=== PATIENT | male | born 1935 | race Caucasian/White ===

== ENCOUNTER → 2023-05-18 06:32 | Outpatient (REF) | payer MEDICARE, SELFPAY ==
[2023-05-18 07:34] LABS: ALT (SGPT) 18 U/L (0-50); AST (SGOT) 24 U/L (17-59); Albumin 4.1 g/dl (3.5-5.0); Alkaline Phosphatase 60 U/L (38-126); Blood Urea Nitrogen 29 mg/dl (9-20); Carbon Dioxide 26 mmol/L (22-30); Chloride 107 mmol/L (98-107); Glucose 127 mg/dl (70-99); Potassium 4.3 mmol/L (3.5-5.1); Sodium 138 mmol/L (135-145); Total Bilirubin 0.4 mg/dl (0.2-1.3); Total Protein 6.6 g/dl (6.3-8.2); eGFR 53.17
[2023-05-18 08:54] LABS: Glycohemoglobin (HgbA1c) 8.1 % (4.0-5.6)
== END ==
LOC: REG 06:32
PROVIDERS: ATTENDING PHYSICIAN Internal Medicine Geriatric Medicine
DX: E11.42 Type 2 diabetes mellitus with diabetic polyneuropathy (principal); E78.2 Mixed hyperlipidemia
CPT/HCPCS: 36415; 80053; 83036

== ENCOUNTER → 2023-05-29 15:04 | Outpatient (REF) | payer MEDICARE, SELFPAY | LOC: RAD 15:04 | PROVIDERS: ATTENDING PHYSICIAN Nurse Practitioner Family; FAMILY PHYSICIAN Internal Medicine Geriatric Medicine | DX: M25.561 Pain in right knee (principal) | CPT/HCPCS: 73564 ==

== ENCOUNTER → 2023-07-20 07:13 | Outpatient (REF) | payer MEDICARE, SELFPAY ==
[2023-07-20 07:57] LABS: % Basophils 0.7 % (0-2); % Eosinophils 1.6 % (0-6); % Immature Granulocytes 0.7 % (0-0.5); % Lymphocytes 14.7 % (20.5-51.1); % Monocytes 10.6 % (1.7-9.3); % Neutrophils 71.7 % (42.2-75.2); Absolute Eosinophils 0.1 10^3/uL (0-0.7); Absolute Lymphocytes 0.6 10^3/uL (1.2-3.4); Absolute Monocytes 0.5 10^3/uL (0.1-0.6); Absolute Neutrophils 3.1 10^3/uL (1.4-6.5); Hematocrit 31.9 % (39.0-52.0); Hemoglobin 10.6 g/dL (13.0-18.0); Mean Corp Hgb Conc. 33.2 g/dL (33.0-37.0); Mean Corpuscular Hgb 28.8 pg (27.0-31.0); Mean Corpuscular Volume 86.7 fL (80.0-94.0); Mean Platelet Volume 9.9 fL (7.4-10.4); Nucleated Red Blood Cells % 0 % (-); Platelet Count 164 10^3/uL (130-400); Red Blood Cell Count 3.68 10^6/uL (4.70-6.10); Red Cell Dist. Width 13.2 % (11.5-14.5); White Blood Cell Count 4.4 10^3/uL (4.8-10.8)
[2023-07-20 08:25] LABS: ALT (SGPT) 17 U/L (0-50); AST (SGOT) 22 U/L (17-59); Albumin 3.9 g/dl (3.5-5.0); Alkaline Phosphatase 53 U/L (38-126); Blood Urea Nitrogen 34 mg/dl (9-20); Calcium 9.3 mg/dl (8.4-10.2); Carbon Dioxide 28 mmol/L (22-30); Chloride 107 mmol/L (98-107); Glucose 141 mg/dl (70-99); HDL Cholesterol 39 mg/dl; LDL Cholesterol, Calculated 52 mg/dl; Potassium 4.6 mmol/L (3.5-5.1); Sodium 141 mmol/L (135-145); Total Bilirubin 0.2 mg/dl (0.2-1.3); Total Cholesterol 110 mg/dl (50-199); Total Protein 6.4 g/dl (6.3-8.2); Triglyceride 95 mg/dl (10-149); Very Low Density Lipoprotein 19 mg/dl (0-30); eGFR 58.53
[2023-07-20 08:56] LABS: PSA, Total - Screen 1.17 ng/ml (0.0-4.0)
[2023-07-20 12:02] LABS: Glycohemoglobin (HgbA1c) 7.8 % (4.0-5.6)
== END ==
LOC: REG 07:13
PROVIDERS: ATTENDING PHYSICIAN Internal Medicine Geriatric Medicine
DX: E11.42 Type 2 diabetes mellitus with diabetic polyneuropathy (principal); I10 Essential (primary) hypertension; E78.2 Mixed hyperlipidemia; R35.0 Frequency of micturition; D64.9 Anemia, unspecified; E03.8 Other specified hypothyroidism; E55.9 Vitamin D deficiency, unspecified; D50.8 Other iron deficiency anemias; Z13.89 Encounter for screening for other disorder; Z12.5 Encounter for screening for malignant neoplasm of prostate
CPT/HCPCS: 36415; 80053; 80061; 82306; 83036; 85025; G0103

== ENCOUNTER 2023-07-27 17:18 | Emergency (ER) | payer MEDICARE, SELFPAY ==
[2023-07-27 17:50] VITALS: BP 179/70
--- NOTE | 2023-07-27 19:38 | ED.MUSCINJ ---
HPI-Injury
General
Chief Complaint: Fall
Source: patient
Exam Limitations: none
Time Seen by Provider: 07/27/23 19:28
Travel History
Have you had any contact with someone who has COVID-19?: No
Do you have any symptoms of coronavirus? Fever > 100 degrees, chills, cough, shortness of breath, sore throat, loss of taste or smell, muscle aches, or headache?: No
History of Present Illness-Injury
Initial Injury comments:
87-year-old [id number] male presents complaining after fall with right shoulder pain. The pain is made worse when he tries to lift his arm up. He did not hit his head. He is not anticoagulated. No other complaints at this time
Past History
Past History
ED Past Medical History: HTN, NIDDM and Other (Diverticulosis, GI bleed 2008, hypertension)
ED Past Surgical History: Appendectomy, Orthopedic (Ankle surgery repair), Tonsilectomy and Other (Cataract removal, hernia repair 1969)
Social History
Tobacco: Non-smoker
Alcohol: None
Drug: None
Personal:
Living: with family
Employment: Retired
Family History
Family History: Other (Noncontributory)
Phy Exam
Physical Exam
Physical Exam:
General: Well-appearing male no acute respiratory distress
Musculoskeletal exam: Right shoulder without deformity but tender over the lateral aspect of the shoulder. Cervical spine is nontender. He has no pain to the elbow or forearm of the right hand.
Neurologic: Alert and oriented no facial asymmetry. No scalp abrasion or hematoma
Skin: Superficial abrasion noted to the right forearm
Injury Course
Orders/Labs/Results
Orders:
Orders
07/27/23 17:53
Shoulder, Right, Trauma [CR Shoulder, Trauma - Right] Urgent
Comment:
Reason For Exam: fall
MDM/Problems Addressed
Differential Diagnosis Includes:
Mechanical fall with right shoulder pain. Question fracture versus sprain versus dislocation
I personally visualized x-rays of the right shoulder which demonstrate a possible subtle nondisplaced fracture of the greater tuberosity. Patient placed in sling. We will advise follow-up with orthopedics for further evaluation
*Critical Care Note
Total Time (30-74mins, 75-104mins- exclusive of procedures): Not Applicable
ED Attending Note
-
Portions of this chart may have been created with voice recognition software.� Occasional wrong word or��sound alike� substitutions may have occurred due to the inherent limitations of voice recognition software.
Discharge Plan
Departure
Patient Disposition: Home (Routine Discharge)
Date of Disposition: 07/27/23
Time of Disposition: 19:40
Patient with high blood pressure during this ER visit?: No
Discharge Problem:
Proximal humerus fracture
Instructions: Muscle and Bone Pain (DC)
Prescriptions:
No Action
metformin 500 MG tablet extended release 24 hr
500 mg PO BID
losartan 50 MG tablet
50 mg PO DAILY
timolol maleate (PF) [Timoptic Ocudose (PF)] 1 EACH dropperette
1 ea RIGHT EYE DAILY
prednisone 50 MG tablet
50 mg PO DAILY Qty: 4 0RF
famotidine 20 MG tablet
20 mg PO DAILY Qty: 7 0RF
hydroxyzine HCl 25 MG tablet
25 mg PO QIDPRN PRN (Reason: hives/itching rash) Qty: 15 0RF
epinephrine [EpiPen] 0.3 MG/0.3/SYRINGE auto-injector
0.3 mg IM NOW Qty: 1 3RF
C,E,zinc,copper [id number] 1 CAP capsule
1 cap PO DAILY
prednisone 10 MG tablet
10 mg PO DAILY Qty: 18 0RF
Rx Instructions:
3 tabs daily �3 days then 2 tabs daily �3 days then 1 tab daily �3 days
diphenhydramine HCl [Benadryl] 25 mg capsule
25 mg PO TID PRN (Reason: itching) Qty: 20 0RF
prednisone 10 mg tablet
10 mg PO DIRECTED Qty: 40 0RF
Rx Instructions:
4 pills a day for 2 days, 3 pills a day for 3 days, 2 pills a day for 3 days, 1 pill a day for 3 days
Referrals:
Matthew Lucas MD [Family Provider] -
Terrence Bray MD [Active] -
Activity Restrictions/Additional Instructions:
Use sling for comfort. Use Tylenol for pain. Follow up with orthopedics for further evaluation.
Interventions
Interventions:
*Risk Screen - Suicide Last Done: 07/27/23 17:52
*General Assessment Last Done: 07/27/23 17:52
*Neglect/Abuse Screening Last Done: 07/27/23 17:52
*ED COVID-19 Vaccine History Last Done: 07/27/23 18:38
ED-Musculoskeletal Assessment Last Done: 07/27/23 18:38
ED- Neurological Assessment Last Done: 07/27/23 18:38
ED-Skin Assessment Last Done: 07/27/23 18:38
Discharge Date and Time
Print Language: [place]ET[place]
== END 2023-07-27 19:50 | disposition home or self-care (01) ==
LOC: EMR 17:18
PROVIDERS: EMERGENCY PHYSICIAN Student in an Organized Health Care Education/Training Program; FAMILY PHYSICIAN Internal Medicine Geriatric Medicine
DX: S42.254A Nondisplaced fracture of greater tuberosity of right humerus, initial encounter for closed fracture (principal); M25.511 Pain in right shoulder; I10 Essential (primary) hypertension; E11.9 Type 2 diabetes mellitus without complications; W19.XXXA Unspecified fall, initial encounter
CPT/HCPCS: 99283; 73030

== ENCOUNTER → 2023-09-18 16:16 | Outpatient (REF) | payer MEDICARE, SELFPAY ==
[2023-09-18 16:44] LABS: % Eosinophils 3.1 % (0-6); % Immature Granulocytes 0.7 % (0-0.5); % Lymphocytes 14.7 % (20.5-51.1); % Monocytes 11.8 % (1.7-9.3); % Neutrophils 69.7 % (42.2-75.2); Absolute Eosinophils 0.1 10^3/uL (0-0.7); Absolute Lymphocytes 0.7 10^3/uL (1.2-3.4); Absolute Monocytes 0.5 10^3/uL (0.1-0.6); Absolute Neutrophils 3.1 10^3/uL (1.4-6.5); Hematocrit 32.3 % (39.0-52.0); Mean Corp Hgb Conc. 34.1 g/dL (33.0-37.0); Mean Corpuscular Hgb 29.3 pg (27.0-31.0); Mean Corpuscular Volume 86.1 fL (80.0-94.0); Mean Platelet Volume 9.6 fL (7.4-10.4); Nucleated Red Blood Cells % 0 % (-); Platelet Count 177 10^3/uL (130-400); Red Blood Cell Count 3.75 10^6/uL (4.70-6.10); Red Cell Dist. Width 13.6 % (11.5-14.5); White Blood Cell Count 4.5 10^3/uL (4.8-10.8)
[2023-09-18 17:06] LABS: Total Iron Binding Capacity 296 ug/dl (261-462)
[2023-09-18 17:33] LABS: Ferritin 27.4 ng/ml (17.9-464.0)
== END ==
LOC: REG 16:16
PROVIDERS: ATTENDING PHYSICIAN Nurse Practitioner Family; FAMILY PHYSICIAN Internal Medicine Geriatric Medicine
DX: D64.9 Anemia, unspecified (principal); D50.8 Other iron deficiency anemias; G47.62 Sleep related leg cramps; K92.2 Gastrointestinal hemorrhage, unspecified
CPT/HCPCS: 36415; 82728; 83550; 85025

== ENCOUNTER → 2023-11-14 06:31 | Outpatient (REF) | payer MEDICARE, SELFPAY ==
[2023-11-14 07:42] LABS: % Basophils 0.2 % (0-2); % Eosinophils 1.4 % (0-6); % Immature Granulocytes 0.4 % (0-0.5); % Lymphocytes 11.8 % (20.5-51.1); % Monocytes 8.4 % (1.7-9.3); % Neutrophils 77.8 % (42.2-75.2); Absolute Eosinophils 0.1 10^3/uL (0-0.7); Absolute Lymphocytes 0.6 10^3/uL (1.2-3.4); Absolute Monocytes 0.4 10^3/uL (0.1-0.6); Absolute Neutrophils 3.8 10^3/uL (1.4-6.5); Hemoglobin 11.3 g/dL (13.0-18.0); Mean Corp Hgb Conc. 33.2 g/dL (33.0-37.0); Mean Corpuscular Volume 87.2 fL (80.0-94.0); Mean Platelet Volume 9.4 fL (7.4-10.4); Nucleated Red Blood Cells % 0 % (-); Platelet Count 193 10^3/uL (130-400); Red Cell Dist. Width 13.2 % (11.5-14.5); White Blood Cell Count 4.9 10^3/uL (4.8-10.8)
[2023-11-14 08:10] LABS: ALT (SGPT) 27 U/L (0-50); AST (SGOT) 26 U/L (17-59); Albumin 4.4 g/dl (3.5-5.0); Alkaline Phosphatase 62 U/L (38-126); Blood Urea Nitrogen 29 mg/dl (9-20); Calcium 9.8 mg/dl (8.4-10.2); Carbon Dioxide 24 mmol/L (22-30); Chloride 104 mmol/L (98-107); Glucose 139 mg/dl (70-99); HDL Cholesterol 35 mg/dl; Iron 98 ug/dl (49-181); LDL Cholesterol, Calculated 67 mg/dl; Potassium 5.1 mmol/L (3.5-5.1); Sodium 145 mmol/L (135-145); Total Bilirubin 0.4 mg/dl (0.2-1.3); Total Cholesterol 135 mg/dl (50-199); Total Protein 6.9 g/dl (6.3-8.2); Triglyceride 169 mg/dl (10-149); Very Low Density Lipoprotein 33 mg/dl (0-30); eGFR > 60.00
[2023-11-14 08:21] LABS: Percent Saturation 32 % (20-50); Total Iron Binding Capacity 297 ug/dl (261-462)
[2023-11-14 08:28] LABS: Vitamin D, 25-OH*** 57.4 ng/mL (30-80)
[2023-11-14 09:23] LABS: Glycohemoglobin (HgbA1c) 7.6 % (4.0-5.6)
== END ==
LOC: REG 06:31
PROVIDERS: ATTENDING PHYSICIAN Internal Medicine Geriatric Medicine
DX: Z00.00 Encounter for general adult medical examination without abnormal findings (principal); E11.42 Type 2 diabetes mellitus with diabetic polyneuropathy; I10 Essential (primary) hypertension; E78.2 Mixed hyperlipidemia; R35.0 Frequency of micturition; D64.9 Anemia, unspecified; E03.8 Other specified hypothyroidism; E55.9 Vitamin D deficiency, unspecified; D50.8 Other iron deficiency anemias; Z13.89 Encounter for screening for other disorder
CPT/HCPCS: 36415; 80053; 80061; 82306; 83036; 83540; 83550; 85025

== ENCOUNTER → 2024-02-06 16:14 | Outpatient (REF) | payer MEDICARE, SELFPAY ==
[2024-02-06 16:59] LABS: % Basophils 0.2 % (0-2); % Eosinophils 1.4 % (0-6); % Immature Granulocytes 3.9 % (0-0.5); % Lymphocytes 8.2 % (20.5-51.1); % Monocytes 6.8 % (1.7-9.3); % Neutrophils 79.5 % (42.2-75.2); Absolute Eosinophils 0.1 10^3/uL (0-0.7); Absolute Immature Granulocytes 0.4 10^3/uL (0-0.05); Absolute Lymphocytes 0.8 10^3/uL (1.2-3.4); Absolute Monocytes 0.7 10^3/uL (0.1-0.6); Absolute Neutrophils 7.7 10^3/uL (1.4-6.5); Hemoglobin 11.9 g/dL (13.0-18.0); Mean Corpuscular Hgb 29.1 pg (27.0-31.0); Mean Corpuscular Volume 85.6 fL (80.0-94.0); Nucleated Red Blood Cells % 0 % (-); Platelet Count 230 10^3/uL (130-400); Red Blood Cell Count 4.09 10^6/uL (4.70-6.10); Red Cell Dist. Width 13.2 % (11.5-14.5); White Blood Cell Count 9.6 10^3/uL (4.8-10.8)
[2024-02-06 17:17] LABS: ALT (SGPT) 23 U/L (0-50); AST (SGOT) 19 U/L (17-59); Albumin 4.2 g/dl (3.5-5.0); Alkaline Phosphatase 62 U/L (38-126); Blood Urea Nitrogen 47 mg/dl (9-20); Calcium 9.3 mg/dl (8.4-10.2); Carbon Dioxide 26 mmol/L (22-30); Chloride 98 mmol/L (98-107); Glucose 446 mg/dl (70-99); Iron 101 ug/dl (49-181); Potassium 5.7 mmol/L (3.5-5.1); Sodium 134 mmol/L (135-145); Total Bilirubin 0.3 mg/dl (0.2-1.3); Total Protein 6.5 g/dl (6.3-8.2); eGFR 52.84
[2024-02-06 17:27] LABS: Percent Saturation 38 % (20-50); Total Iron Binding Capacity 264 ug/dl (261-462)
[2024-02-06 17:49] LABS: TSH Reflex To Free T4 2.16 uIU/ml (0.47-4.68)
[2024-02-06 18:08] LABS: Vitamin B12 914 pg/ml (239-931)
== END ==
LOC: RAD 16:14
PROVIDERS: ATTENDING PHYSICIAN Nurse Practitioner Primary Care
DX: U07.1 COVID-19 (principal); R53.1 Weakness; R42 Dizziness and giddiness; D64.9 Anemia, unspecified; E11.9 Type 2 diabetes mellitus without complications
CPT/HCPCS: 36415; 71046; 80053; 82607; 82728; 83540; 83550; 84443; 85025

== ENCOUNTER → 2024-02-14 10:11 | Outpatient (REF) | payer MEDICARE, SELFPAY ==
[2024-02-14 13:35] LABS: Glycohemoglobin (HgbA1c) 11.1 % (4.0-5.6)
[2024-02-14 14:13] LABS: Blood Urea Nitrogen 41 mg/dl (9-20); Calcium 8.8 mg/dl (8.4-10.2); Carbon Dioxide 26 mmol/L (22-30); Chloride 102 mmol/L (98-107); Glucose 182 mg/dl (70-99); Potassium 4.5 mmol/L (3.5-5.1); Sodium 139 mmol/L (135-145); eGFR 52.84
== END ==
LOC: REG 10:11
PROVIDERS: ATTENDING PHYSICIAN Nurse Practitioner Primary Care; FAMILY PHYSICIAN Internal Medicine Geriatric Medicine
DX: E11.65 Type 2 diabetes mellitus with hyperglycemia (principal)
CPT/HCPCS: 36415; 80048; 83036

== ENCOUNTER → 2024-03-20 10:15 | Outpatient (REF) | payer MEDICARE, SELFPAY ==
[2024-03-20 11:40] LABS: ALT (SGPT) 29 U/L (0-50); AST (SGOT) 29 U/L (17-59); Albumin 4.2 g/dl (3.5-5.0); Alkaline Phosphatase 55 U/L (38-126); Blood Urea Nitrogen 30 mg/dl (9-20); Calcium 8.7 mg/dl (8.4-10.2); Carbon Dioxide 29 mmol/L (22-30); Chloride 100 mmol/L (98-107); Glucose 157 mg/dl (70-99); Potassium 4.4 mmol/L (3.5-5.1); Sodium 139 mmol/L (135-145); Total Bilirubin 0.3 mg/dl (0.2-1.3); Total Protein 6.3 g/dl (6.3-8.2); eGFR > 60.00
[2024-03-20 13:25] LABS: Microalbumin, Random Urine 9.2 mg/dl (0.6-1.7); Microalbumin/creatinine Ratio 181.1 mg/g
[2024-03-22 13:48] LABS: Fructosamine 272 umol/L (205-285)
== END ==
LOC: REG 10:15
PROVIDERS: ATTENDING PHYSICIAN Nurse Practitioner Primary Care; FAMILY PHYSICIAN Internal Medicine Geriatric Medicine
DX: E11.42 Type 2 diabetes mellitus with diabetic polyneuropathy (principal)
CPT/HCPCS: 36415; 80053; 82043; 82570; 82985

== ENCOUNTER → 2024-04-12 10:07 | Outpatient (REF) | payer MEDICARE, SELFPAY ==
[2024-04-12 11:15] LABS: % Basophils 0.8 % (0-2); % Eosinophils 1.2 % (0-6); % Immature Granulocytes 0.6 % (0-0.5); % Lymphocytes 8.9 % (20.5-51.1); % Monocytes 7.7 % (1.7-9.3); % Neutrophils 80.8 % (42.2-75.2); Absolute Eosinophils 0.1 10^3/uL (0-0.7); Absolute Lymphocytes 0.5 10^3/uL (1.2-3.4); Absolute Monocytes 0.4 10^3/uL (0.1-0.6); Absolute Neutrophils 4.2 10^3/uL (1.4-6.5); Hematocrit 34.7 % (39.0-52.0); Hemoglobin 11.2 g/dL (13.0-18.0); Mean Corp Hgb Conc. 32.3 g/dL (33.0-37.0); Mean Corpuscular Hgb 28.4 pg (27.0-31.0); Mean Corpuscular Volume 87.8 fL (80.0-94.0); Mean Platelet Volume 10.1 fL (7.4-10.4); Nucleated Red Blood Cells % 0 % (-); Platelet Count 206 10^3/uL (130-400); Red Blood Cell Count 3.95 10^6/uL (4.70-6.10); White Blood Cell Count 5.2 10^3/uL (4.8-10.8)
[2024-04-12 12:11] LABS: ALT (SGPT) 23 U/L (0-50); AST (SGOT) 23 U/L (17-59); Albumin 4.2 g/dl (3.5-5.0); Alkaline Phosphatase 58 U/L (38-126); Blood Urea Nitrogen 31 mg/dl (9-20); Calcium 9.3 mg/dl (8.4-10.2); Carbon Dioxide 28 mmol/L (22-30); Chloride 104 mmol/L (98-107); Glucose 188 mg/dl (70-99); Potassium 4.4 mmol/L (3.5-5.1); Sodium 140 mmol/L (135-145); Total Bilirubin 0.4 mg/dl (0.2-1.3); Total Protein 6.6 g/dl (6.3-8.2); eGFR 58.17
[2024-04-14 20:13] LABS: Fructosamine 280 umol/L (205-285)
== END ==
LOC: REG 10:07
PROVIDERS: ATTENDING PHYSICIAN Internal Medicine Geriatric Medicine
DX: E78.2 Mixed hyperlipidemia (principal); I10 Essential (primary) hypertension; E11.42 Type 2 diabetes mellitus with diabetic polyneuropathy; D64.9 Anemia, unspecified; E03.8 Other specified hypothyroidism; E55.9 Vitamin D deficiency, unspecified; D50.8 Other iron deficiency anemias; R29.6 Repeated falls; Z13.31 Encounter for screening for depression
CPT/HCPCS: 36415; 80053; 82985; 85025

== ENCOUNTER → 2024-06-14 10:41 | Outpatient (REF) | payer MEDICARE, SELFPAY ==
[2024-06-14 11:53] LABS: % Basophils 0.7 % (0-2); % Eosinophils 0.9 % (0-6); % Immature Granulocytes 0.7 % (0-0.5); % Lymphocytes 10.6 % (20.5-51.1); % Monocytes 8.7 % (1.7-9.3); % Neutrophils 78.4 % (42.2-75.2); Absolute Eosinophils 0.1 10^3/uL (0-0.7); Absolute Lymphocytes 0.6 10^3/uL (1.2-3.4); Absolute Monocytes 0.5 10^3/uL (0.1-0.6); Absolute Neutrophils 4.2 10^3/uL (1.4-6.5); Hematocrit 34.1 % (39.0-52.0); Hemoglobin 10.9 g/dL (13.0-18.0); Mean Corpuscular Hgb 28.5 pg (27.0-31.0); Mean Platelet Volume 9.4 fL (7.4-10.4); Nucleated Red Blood Cells % 0 % (-); Platelet Count 185 10^3/uL (130-400); Red Blood Cell Count 3.83 10^6/uL (4.70-6.10); Red Cell Dist. Width 13.3 % (11.5-14.5); White Blood Cell Count 5.4 10^3/uL (4.8-10.8)
[2024-06-14 12:11] LABS: ALT (SGPT) 17 U/L (0-50); AST (SGOT) 21 U/L (17-59); Albumin 4.1 g/dl (3.5-5.0); Alkaline Phosphatase 49 U/L (38-126); Blood Urea Nitrogen 32 mg/dl (9-20); Calcium 9.8 mg/dl (8.4-10.2); Carbon Dioxide 27 mmol/L (22-30); Chloride 107 mmol/L (98-107); Glucose 135 mg/dl (70-99); Potassium 4.8 mmol/L (3.5-5.1); Sodium 144 mmol/L (135-145); Total Bilirubin 0.4 mg/dl (0.2-1.3); Total Protein 6.4 g/dl (6.3-8.2); eGFR > 60.00
[2024-06-14 14:19] LABS: Glycohemoglobin (HgbA1c) 6.3 % (4.0-5.6)
== END ==
LOC: REG 10:41
PROVIDERS: ATTENDING PHYSICIAN Internal Medicine Geriatric Medicine
DX: E78.2 Mixed hyperlipidemia (principal); I10 Essential (primary) hypertension; E11.42 Type 2 diabetes mellitus with diabetic polyneuropathy; D64.9 Anemia, unspecified; E03.8 Other specified hypothyroidism; E55.9 Vitamin D deficiency, unspecified; D50.8 Other iron deficiency anemias; R29.6 Repeated falls; Z13.89 Encounter for screening for other disorder
CPT/HCPCS: 36415; 80053; 83036; 85025

== ENCOUNTER → 2024-09-03 06:41 | Outpatient (REF) | payer MEDICARE, SELFPAY ==
[2024-09-03 07:44] LABS: Hematocrit 32.6 % (39.0-52.0); Hemoglobin 10.5 g/dL (13.0-18.0); Mean Corp Hgb Conc. 32.2 g/dL (33.0-37.0); Mean Corpuscular Volume 87.6 fL (80.0-94.0); Nucleated Red Blood Cells % 0 % (-); Platelet Count 180 10^3/uL (130-400); Red Cell Dist. Width 14.3 % (11.5-14.5)
[2024-09-03 07:55] LABS: Urine Character Clear (Clear)
[2024-09-03 08:34] LABS: ALT (SGPT) 15 U/L (0-50); AST (SGOT) 19 U/L (17-59); Albumin 4.4 g/dl (3.5-5.0); Alkaline Phosphatase 48 U/L (38-126); Blood Urea Nitrogen 31 mg/dl (9-20); Calcium 9.5 mg/dl (8.4-10.2); Carbon Dioxide 24 mmol/L (22-30); Chloride 111 mmol/L (98-107); Glucose 112 mg/dl (70-99); HDL Cholesterol 36 mg/dl; LDL Cholesterol, Calculated 73 mg/dl; Potassium 4.9 mmol/L (3.5-5.1); Sodium 143 mmol/L (135-145); Total Protein 6.6 g/dl (6.3-8.2); Very Low Density Lipoprotein 25 mg/dl (0-30); eGFR > 60.00
[2024-09-03 08:42] LABS: Vitamin D, 25-OH*** 53.1 ng/mL (30-80)
[2024-09-03 09:03] LABS: Glycohemoglobin (HgbA1c) 6.4 % (4.0-5.6)
== END ==
LOC: REG 06:41
PROVIDERS: ATTENDING PHYSICIAN Internal Medicine Geriatric Medicine
DX: E78.2 Mixed hyperlipidemia (principal); I10 Essential (primary) hypertension; E11.42 Type 2 diabetes mellitus with diabetic polyneuropathy; D64.9 Anemia, unspecified; E03.8 Other specified hypothyroidism; E55.9 Vitamin D deficiency, unspecified; D50.8 Other iron deficiency anemias; R29.6 Repeated falls; Z13.89 Encounter for screening for other disorder
CPT/HCPCS: 36415; 80053; 80061; 81003; 82306; 83036; 84681; 85025

== ENCOUNTER → 2024-10-08 06:25 | Outpatient (REF) | payer MEDICARE, SELFPAY ==
[2024-10-08 13:04] LABS: Folate 9.3 ng/ml (2.76-20); Vitamin B12 306 pg/ml (239-931)
[2024-10-08 14:57] LABS: Hepatitis C Antibody Negative (Negative)
[2024-10-10 15:31] LABS: Lyme Antibody Screen, EIA Negative (Negative)
[2024-10-11 00:40] LABS: 24 Hour Urine Total Volume Random mL; Urine Collection Length Random hr
== END ==
LOC: REG 06:25
PROVIDERS: ATTENDING PHYSICIAN Internal Medicine Geriatric Medicine; OTHER PHYSICIAN Internal Medicine Hematology & Oncology
DX: E87.20 Acidosis, unspecified (principal); I10 Essential (primary) hypertension; E11.42 Type 2 diabetes mellitus with diabetic polyneuropathy; D64.9 Anemia, unspecified; E03.8 Other specified hypothyroidism; E55.9 Vitamin D deficiency, unspecified; D50.8 Other iron deficiency anemias; R29.6 Repeated falls; Z13.89 Encounter for screening for other disorder; G62.9 Polyneuropathy, unspecified; D51.9 Vitamin B12 deficiency anemia, unspecified; E53.1 Pyridoxine deficiency
CPT/HCPCS: 36415; 82607; 82746; 83520; 84155; 84156; 84165; 84207; 84425; 86335; 86618; 86803

== ENCOUNTER → 2024-11-07 06:28 | Outpatient (REF) | payer MEDICARE, SELFPAY ==
[2024-11-07 07:39] LABS: Hematocrit 33.4 % (39.0-52.0); Hemoglobin 10.6 g/dL (13.0-18.0); Mean Corp Hgb Conc. 31.7 g/dL (33.0-37.0); Mean Corpuscular Volume 88.4 fL (80.0-94.0); Nucleated Red Blood Cells % 0 % (-); Platelet Count 188 10^3/uL (130-400); Red Cell Dist. Width 13.8 % (11.5-14.5); Reticulocyte Count 1.3 % (0.4-2.8)
[2024-11-07 07:57] LABS: Iron 66 ug/dl (49-181); LDH 136 U/L (120-246)
[2024-11-07 08:06] LABS: Total Iron Binding Capacity 286 ug/dl (261-462)
[2024-11-07 10:13] LABS: Ferritin 30.1 ng/ml (17.9-464.0)
== END ==
LOC: REG 06:28
PROVIDERS: ATTENDING PHYSICIAN Internal Medicine Hematology & Oncology; FAMILY PHYSICIAN Internal Medicine Geriatric Medicine
DX: D64.9 Anemia, unspecified (principal); D47.2 Monoclonal gammopathy
CPT/HCPCS: 36415; 82668; 82728; 83010; 83540; 83550; 83615; 85025; 85045; 85652

== ENCOUNTER → 2025-02-07 06:28 | Outpatient (REF) | payer MEDICARE, SELFPAY ==
[2025-02-07 08:03] LABS: Hematocrit 33.4 % (39.0-52.0); Hemoglobin 10.7 g/dL (13.0-18.0); Mean Corp Hgb Conc. 32.0 g/dL (33.0-37.0); Mean Corpuscular Volume 86.3 fL (80.0-94.0); Nucleated Red Blood Cells % 0 % (-); Platelet Count 204 10^3/uL (130-400); Red Cell Dist. Width 14.2 % (11.5-14.5); Reticulocyte Count 1.5 % (0.4-2.8)
[2025-02-07 08:16] LABS: Blood Urea Nitrogen 42 mg/dl (9-20); Iron 56 ug/dl (49-181)
[2025-02-07 08:25] LABS: Total Iron Binding Capacity 294 ug/dl (261-462)
[2025-02-07 08:52] LABS: Ferritin 43.4 ng/ml (17.9-464.0)
[2025-02-07 09:06] LABS: Vitamin B12 977 pg/ml (239-931)
== END ==
LOC: REG 06:28
PROVIDERS: ATTENDING PHYSICIAN Internal Medicine Hematology & Oncology; FAMILY PHYSICIAN Internal Medicine Geriatric Medicine
DX: D64.9 Anemia, unspecified (principal); D47.2 Monoclonal gammopathy; D51.9 Vitamin B12 deficiency anemia, unspecified; K57.90 Diverticulosis of intestine, part unspecified, without perforation or abscess without bleeding; K92.2 Gastrointestinal hemorrhage, unspecified
CPT/HCPCS: 36415; 82565; 82607; 82728; 83540; 83550; 84520; 85025; 85045